=== PATIENT | female | born 1980 | race African-American/Black ===

== ENCOUNTER 2016-09-02 16:14 | Emergency (ER) | payer OTHER ==
[~2016-09-02] VITALS: Ht 167.6 cm; Wt 72.0 kg
[2016-09-02] MEDS ORDERED: BIOT5CAP10 PO (16:27)
[2016-09-02] MEDS ORDERED: PNV11TAB PO (16:27)
[2016-09-02] MEDS ORDERED: SODIUM CHLORIDE 0.9% 1,000 ML IV ONE (17:15)
[2016-09-02] MEDS ORDERED: KETOROLAC TROMETHAMINE 30 MG/ML VIAL IVP ONE (17:15)
[2016-09-02] MEDS ORDERED: ONDANSETRON HCL 4 MG/2 ML VIAL IVP ONE (17:15)
[2016-09-02 17:43] LABS: BASOPHILS % (AUTO) 1.1 % (0.0-2.0); EOSINOPHILS % (AUTO) 6.6 % (1.0-6.0); HEMATOCRIT 33.8 % (36-46); HEMOGLOBIN 10.2 g/dL (12.0-16.0); LYMPHOCYTES # (AUTO) 1.9 K/uL (1.0-4.8); LYMPHOCYTES % (AUTO) 27.7 % (22.0-44.0); MEAN CORPUSCULAR HGB CONC 30.3 G/dL (31.0-37.0); MEAN CORPUSCULAR VOLUME 73 fL (80-100); MONOCYTES # (AUTO) 0.3 K/uL (0.1-1.0); MONOCYTES % (AUTO) 3.9 % (2.0-9.0); NEUTROPHILS # (AUTO) 4.1 K/uL (1.8-7.7); NEUTROPHILS % (AUTO) 60.7 % (40.0-70.0); PLATELET COUNT (AUTO) 371 K/uL (150-450); RED BLOOD CELL COUNT(AUTO) 4.66 MIL/uL (4.00-5.20); RED CELL DISTRIBUTION WIDTH 20.9 % (11.5-14.5); WHITE BLOOD COUNT (AUTO) 6.8 K/uL (4.5-11.0)
[2016-09-02 17:46] LABS: ANION GAP 5 mmol/L (8-16); CALCIUM, TOTAL 8.8 mg/dL (8.8-10.5); CARBON DIOXIDE 29 mmol/L (22-29); CHLORIDE 103 mmol/L (98-107); CREATININE 0.98 mg/dL (0.60-1.30); GLOMERULAR FILTR. RATE CALC > 60 mL/min (>60); POTASSIUM 4.4 mmol/L (3.5-5.1); SODIUM SERUM 137 mmol/L (136-145); UREA NITROGEN, BLOOD 10 mg/dL (7-18)
[2016-09-02 17:54] LABS: RBC MORPHOLOGY COMMENT ABNORMAL RBC MORPH
[2016-09-02 17:55] LABS: ALANINE AMINOTRANSFERASE 22 U/L (12-78); ALBUMIN 3.6 g/dL (3.4-5.0); ASPARTATE AMINOTRANSFERASE 15 U/L (15-37); BILIRUBIN,TOTAL 0.2 mg/dL (0.1-1.0)
[2016-09-02 19:08] VITALS: BP 119/65
== END 2016-09-02 19:14 | disposition home or self-care (01) ==
LOC: EMS 16:15
DX: N83.201 Unspecified ovarian cyst, right side (principal); N83.202 Unspecified ovarian cyst, left side; F17.210 Nicotine dependence, cigarettes, uncomplicated; Z88.5 Allergy status to narcotic agent; Z88.8 Allergy status to other drugs, medicaments and biological substances
CPT/HCPCS: 36415; 76856; 80053; 83690; 84703; 85025; 96361; 96374; 96375; 99285; J1885; J2405; J7030

== ENCOUNTER 2017-03-11 19:52 | Emergency (ER) | payer OTHER ==
[~2017-03-11] VITALS: Ht 165.1 cm; Wt 90.5 kg
[~2017-03-11 19:52] MED LIST: BIOT5CAP9 PO; PNV11TAB PO
[2017-03-11] MEDS ORDERED: KETOROLAC TROMETHAMINE 60 MG/2 ML VIAL IM ONE (21:15)
[2017-03-11 23:06] VITALS: BP 118/70
== END 2017-03-11 23:27 | disposition home or self-care (01) ==
LOC: EMS 19:56
DX: S00.83XA Contusion of other part of head, initial encounter (principal); F17.210 Nicotine dependence, cigarettes, uncomplicated; Z88.6 Allergy status to analgesic agent; Z88.5 Allergy status to narcotic agent; Z88.8 Allergy status to other drugs, medicaments and biological substances; Y04.0XXA Assault by unarmed brawl or fight, initial encounter; Y93.89 Activity, other specified; Y92.89 Other specified places as the place of occurrence of the external cause; Y99.8 Other external cause status
CPT/HCPCS: 70450; 81025; 96372; 99284; J1885

== ENCOUNTER 2017-09-19 16:03 | Emergency (ER) | payer OTHER ==
[~2017-09-19] VITALS: Ht 162.6 cm; Wt 86.8 kg
[2017-09-19] MEDS ORDERED: IBUPROFEN 800 MG TABLET PO ONE (16:30)
[2017-09-19 17:31] VITALS: BP 136/85
== END 2017-09-19 18:48 | disposition home or self-care (01) ==
LOC: EMS 16:08
DX: S46.912A Strain of unspecified muscle, fascia and tendon at shoulder and upper arm level, left arm, initial encounter (principal); F17.210 Nicotine dependence, cigarettes, uncomplicated; Z88.8 Allergy status to other drugs, medicaments and biological substances; X58.XXXA Exposure to other specified factors, initial encounter; Y93.89 Activity, other specified; Y92.89 Other specified places as the place of occurrence of the external cause; Y99.8 Other external cause status
CPT/HCPCS: 99284; 99406

== ENCOUNTER 2017-10-23 23:22 | Emergency (ER) | payer OTHER ==
[~2017-10-23] VITALS: Ht 172.7 cm; Wt 85.0 kg
[2017-10-24 00:27] LABS: BASOPHILS % (AUTO) 1.3 % (0.0-2.0); EOSINOPHILS % (AUTO) 4.4 % (1.0-6.0); HEMATOCRIT 28.9 % (36-46); HEMOGLOBIN 9.5 g/dL (12.0-16.0); LYMPHOCYTES # (AUTO) 2.8 K/uL (1.0-4.8); LYMPHOCYTES % (AUTO) 30.3 % (22.0-44.0); MEAN CORPUSCULAR HEMOGLOBIN 23.4 pg (26.0-34.0); MEAN CORPUSCULAR HGB CONC 32.7 G/dL (31.0-37.0); MEAN CORPUSCULAR VOLUME 72 fL (80-100); MONOCYTES # (AUTO) 0.7 K/uL (0.1-1.0); MONOCYTES % (AUTO) 7.5 % (2.0-9.0); NEUTROPHILS # (AUTO) 5.3 K/uL (1.8-7.7); NEUTROPHILS % (AUTO) 56.5 % (40.0-70.0); PLATELET COUNT (AUTO) 346 K/uL (150-450); RED BLOOD CELL COUNT(AUTO) 4.04 MIL/uL (4.00-5.20); RED CELL DISTRIBUTION WIDTH 18.1 % (11.5-14.5)
[2017-10-24 00:39] LABS: ANION GAP 8 mmol/L (8-16); CALCIUM, TOTAL 9.1 mg/dL (8.8-10.5); CARBON DIOXIDE 25 mmol/L (22-29); CHLORIDE 101 mmol/L (98-107); GLOMERULAR FILTR. RATE CALC > 60 mL/min (>60); GLUCOSE,RANDOM 93 mg/dL (70-110); POTASSIUM 3.6 mmol/L (3.5-5.1); SODIUM SERUM 134 mmol/L (136-145); UREA NITROGEN, BLOOD 10 mg/dL (7-18)
[2017-10-24 00:45] LABS: ALANINE AMINOTRANSFERASE 16 U/L (12-78); ALBUMIN 3.4 g/dL (3.4-5.0); ALKALINE PHOSPHATASE 95 U/L (46-116); ASPARTATE AMINOTRANSFERASE 12 U/L (15-37); BILIRUBIN,TOTAL 0.1 mg/dL (0.1-1.0); LIPASE 122 U/L (73-393); TOTAL PROTEIN, SERUM 7.7 g/dL (6.4-8.2)
[2017-10-24 01:58] LABS: APPEARANCE,URINE CLEAR (CLEAR); BILIRUBIN,URINE NEGATIVE (NEGATIVE); GLUCOSE, URINE (UA) NEGATIVE (NEGATIVE); KETONES,URINE NEGATIVE (NEGATIVE); LEUKOCYTE ESTERASE ,URINE NEGATIVE (NEGATIVE); NITRATE,URINE NEGATIVE (NEGATIVE); OCCULT BLOOD,URINE NEGATIVE (NEGATIVE); PH,URINE 6.5 (5.0-8.0); PROTEIN,URINE NEGATIVE (NEGATIVE); UROBILINOGEN,URINE 0.2 mg/dL (<=1.0)
[2017-10-24 02:24] LABS: HCG,QUANTITATIVE 93670 mIU/mL (0-6)
[2017-10-24 03:12] VITALS: BP 141/79
== END 2017-10-24 03:33 | disposition home or self-care (01) ==
LOC: EMS 23:23
DX: O21.9 Vomiting of pregnancy, unspecified (principal); O99.331 Smoking (tobacco) complicating pregnancy, first trimester; O26.891 Other specified pregnancy related conditions, first trimester; R10.30 Lower abdominal pain, unspecified; R11.0 Nausea; Z3A.08 8 weeks gestation of pregnancy; Z88.6 Allergy status to analgesic agent; Z88.5 Allergy status to narcotic agent; Z88.8 Allergy status to other drugs, medicaments and biological substances
CPT/HCPCS: 76801; 86901; 99285; 99406

== ENCOUNTER 2020-09-16 13:37 | Emergency (ER) | payer OTHER ==
[~2020-09-16] VITALS: Ht 175.3 cm; Wt 95.0 kg
[2020-09-16 14:42] LABS: BASOPHILS % (AUTO) 0.3 % (0.0-2.0); EOSINOPHILS % (AUTO) 0.2 % (1.0-6.0); HEMATOCRIT 31.2 % (36-46); HEMOGLOBIN 9.7 g/dL (12.0-16.0); LYMPHOCYTES # (AUTO) 1.6 K/uL (1.0-4.8); LYMPHOCYTES % (AUTO) 11.1 % (22.0-44.0); MEAN CORPUSCULAR HEMOGLOBIN 21.9 pg (26.0-34.0); MEAN CORPUSCULAR VOLUME 71 fL (80-100); MONOCYTES % (AUTO) 7.2 % (2.0-9.0); NEUTROPHILS # (AUTO) 11.5 K/uL (1.8-7.7); NEUTROPHILS % (AUTO) 81.2 % (40.0-70.0); PLATELET COUNT (AUTO) 301 K/uL (150-450); RED BLOOD CELL COUNT(AUTO) 4.42 MIL/uL (4.00-5.20); RED CELL DISTRIBUTION WIDTH 18.7 % (11.5-14.5)
[2020-09-16 14:51] LABS: ANION GAP 10 mmol/L (8-16); CALCIUM, TOTAL 8.9 mg/dL (8.8-10.5); CARBON DIOXIDE 25 mmol/L (22-29); CHLORIDE 100 mmol/L (98-107); CREATININE 0.72 mg/dL (0.60-1.30); GLOMERULAR FILTR. RATE CALC > 60 mL/min (>60); GLUCOSE,RANDOM 98 mg/dL (70-110); POTASSIUM 3.7 mmol/L (3.5-5.1); SODIUM SERUM 135 mmol/L (136-145); UREA NITROGEN, BLOOD 8 mg/dL (7-18)
[2020-09-16 15:02] LABS: HCG,QUANTITATIVE < 1 mIU/mL (0-6)
[2020-09-16] MEDS ORDERED: KETOROLAC TROMETHAMINE 30 MG/ML VIAL IM ONE (15:30)
[2020-09-16] MEDS ORDERED: DEXAMETHASONE 4 MG TABLET PO ONE (15:30)
[2020-09-16 15:42] LABS: PLATELET MORPHOLOGY COMMENT LARGE PLTS PRESENT
[2020-09-16 16:49] VITALS: BP 115/62
== END 2020-09-16 16:54 | disposition home or self-care (01) ==
LOC: EMS 13:43
DX: J03.90 Acute tonsillitis, unspecified (principal)
CPT/HCPCS: 36415; 80048; 84702; 85025; 87430; 96372; 99283; J1885; J8540

== ENCOUNTER 2021-06-30 12:59 | Emergency (ER) | payer OTHER ==
[~2021-06-30] VITALS: Ht 165.1 cm; Wt 86.4 kg
[2021-06-30 13:42] LABS: COVID AG,FIA SOURCE NASOPHARYNGEAL
[2021-06-30 15:16] VITALS: BP 133/80
[2021-06-30] MEDS ORDERED: FLUT16H NASAL (15:27)
[2021-06-30] MEDS ORDERED: OXYMETAZOLINE HCL 0.05% 15 ML NASAL SPRAY NASAL ONE (15:30)
[2021-06-30] MEDS ORDERED: KETOROLAC TROMETHAMINE 30 MG/ML VIAL IM ONE (15:30)
== END 2021-06-30 15:47 | disposition home or self-care (01) ==
LOC: EMS 12:59
DX: J40 Bronchitis, not specified as acute or chronic (principal); Z20.822 Contact with and (suspected) exposure to COVID-19
CPT/HCPCS: 71045; 87426; 96372; 99284; J1885

== ENCOUNTER 2022-06-27 06:59 | Emergency (ER) | payer OTHER ==
[~2022-06-27] VITALS: Ht 170.2 cm; Wt 72.7 kg
[~2022-06-27 06:59] MED LIST changes: -BIOT5CAP9 PO; +FLUT16SP NASAL; -PNV11TAB PO
[2022-06-27 07:06] VITALS: BP 108/73
[2022-06-27 07:16] LABS: COVID AG,FIA SOURCE NASAL SWAB
[2022-06-27 07:37] LABS: RAPID GROUP A STREP POSITIVE (NEGATIVE)
[2022-06-27 07:43] LABS: INFLUENZA TYPE A NEGATIVE FOR TYPE A (NEGATIVE); INFLUENZA TYPE B NEGATIVE FOR TYPE B (NEGATIVE)
[2022-06-27] MEDS ORDERED: PENI500T2 PO (08:44)
[2022-06-27] MEDS ORDERED: KETOROLAC TROMETHAMINE 60 MG/2 ML VIAL IM ONE (08:45)
[2022-06-27] MEDS ORDERED: LIDOCAINE/PF 1% 2 ML VIAL IM ONE (08:45)
[2022-06-27] MEDS ORDERED: CefTRIAXone SODIUM 1 GM/VIAL IM ONE (08:45)
== END 2022-06-27 09:28 | disposition home or self-care (01) ==
LOC: EMS 07:03
DX: J02.9 Acute pharyngitis, unspecified (principal); R50.9 Fever, unspecified; Z87.891 Personal history of nicotine dependence; Z98.890 Other specified postprocedural states; Z88.6 Allergy status to analgesic agent; Z88.8 Allergy status to other drugs, medicaments and biological substances; Z20.822 Contact with and (suspected) exposure to COVID-19
CPT/HCPCS: 99284; 87426; 87430; 87804; 96372; J0696; J3490

== ENCOUNTER 2022-08-07 23:23 | Emergency (ER) | payer OTHER ==
[~2022-08-07] VITALS: Ht 170.2 cm; Wt 95.5 kg
[~2022-08-07 23:23] MED LIST changes: +PENI500T2 PO
[2022-08-07 23:25] VITALS: BP 170/94
[2022-08-08 00:21] LABS: BASOPHILS % (AUTO) 1.2 % (0.0-2.0); EOSINOPHILS % (AUTO) 2.3 % (1.0-6.0); HEMATOCRIT 26.5 % (36-46); HEMOGLOBIN 8.3 g/dL (12.0-16.0); LYMPHOCYTES # (AUTO) 3.3 K/uL (1.0-4.8); LYMPHOCYTES % (AUTO) 39.8 % (22.0-44.0); MEAN CORPUSCULAR HEMOGLOBIN 20.8 pg (26.0-34.0); MEAN CORPUSCULAR HGB CONC 31.4 G/dL (31.0-37.0); MEAN CORPUSCULAR VOLUME 66 fL (80-100); MONOCYTES # (AUTO) 0.6 K/uL (0.1-1.0); MONOCYTES % (AUTO) 7.3 % (2.0-9.0); NEUTROPHILS % (AUTO) 49.4 % (40.0-70.0); PLATELET COUNT (AUTO) 425 K/uL (150-450); RED BLOOD CELL COUNT(AUTO) 4.01 MIL/uL (4.00-5.20); RED CELL DISTRIBUTION WIDTH 20.2 % (11.5-14.5)
[2022-08-08 00:28] LABS: ANION GAP 11 mmol/L (8-16); CALCIUM, TOTAL 8.3 mg/dL (8.8-10.5); CARBON DIOXIDE 24 mmol/L (22-29); CHLORIDE 102 mmol/L (98-107); CREATININE 1.01 mg/dL (0.60-1.30); GLOMERULAR FILTR. RATE CALC > 60 mL/min (>60); GLUCOSE,RANDOM 101 mg/dL (70-110); POTASSIUM 3.5 mmol/L (3.5-5.1); SODIUM SERUM 137 mmol/L (136-145); UREA NITROGEN, BLOOD 21 mg/dL (7-18)
[2022-08-08 00:35] LABS: ALANINE AMINOTRANSFERASE 16 U/L (12-78); ALBUMIN 3.4 g/dL (3.4-5.0); ALKALINE PHOSPHATASE 74 U/L (46-116); ASPARTATE AMINOTRANSFERASE 15 U/L (15-37); BILIRUBIN,TOTAL 0.3 mg/dL (0.1-1.0); TOTAL PROTEIN, SERUM 7.6 g/dL (6.4-8.2)
[2022-08-08] MEDS ORDERED: BACITRACIN 0.9 GM PACKET OINTMENT TP ONE (01:45)
[2022-08-08] MEDS ORDERED: IBUPROFEN 600 MG TABLET PO ONE (02:00)
== END 2022-08-08 01:58 | disposition home or self-care (01) ==
LOC: EMS 23:23
DX: S00.83XA Contusion of other part of head, initial encounter (principal); S19.9XXA Unspecified injury of neck, initial encounter; S00.81XA Abrasion of other part of head, initial encounter; Z98.890 Other specified postprocedural states; Z87.891 Personal history of nicotine dependence; Z88.5 Allergy status to narcotic agent; Z88.8 Allergy status to other drugs, medicaments and biological substances; X58.XXXA Exposure to other specified factors, initial encounter; Y93.89 Activity, other specified; Y92.89 Other specified places as the place of occurrence of the external cause; Y99.8 Other external cause status
CPT/HCPCS: 70450; 70486; 72125; 80053; 84703; 85025; 99284

== ENCOUNTER 2022-11-19 10:40 | Emergency (ER) | payer OTHER ==
[~2022-11-19] VITALS: Ht 170.2 cm; Wt 77.3 kg
[2022-11-19 10:59] VITALS: BP 128/74; PULSE 78; RESP 16; TEMP 98.3
[2022-11-19 13:35] LABS: COVID AG,FIA SOURCE NASOPHARYNGEAL
[2022-11-19] MEDS ORDERED: IBUP-1492 PO (13:54)
[2022-11-19] MEDS ORDERED: PERCT PO (13:55)
[2022-11-19] MEDS ORDERED: PENI500T2 PO (13:55)
[2022-11-19] MEDS ORDERED: AMOX500C2 PO (15:17)
== END 2022-11-19 15:40 | disposition home or self-care (01) ==
LOC: EMS 10:40
DX: J32.9 Chronic sinusitis, unspecified (principal); Z85.9 Personal history of malignant neoplasm, unspecified; Z87.891 Personal history of nicotine dependence; Z88.5 Allergy status to narcotic agent; Z88.6 Allergy status to analgesic agent; Z88.8 Allergy status to other drugs, medicaments and biological substances; Z20.822 Contact with and (suspected) exposure to COVID-19; Z98.890 Other specified postprocedural states
CPT/HCPCS: 87430; 99283

== ENCOUNTER 2023-03-19 09:42 | Emergency (ER) | payer OTHER ==
[~2023-03-19] VITALS: Ht 162.6 cm; Wt 88.2 kg
[~2023-03-19 09:42] MED LIST changes: +AMOX500C2 PO; -FLUT16SP NASAL; +IBUP-1492 PO; -PENI500T2 PO
[2023-03-19 09:44] VITALS: TEMP 98
[2023-03-19 10:02] LABS: COVID AG,FIA SOURCE NASAL SWAB
[2023-03-19 10:25] LABS: SARS-COV2 (COVID) ANTIGEN,FIA Negative (Negative)
[2023-03-19 10:26] LABS: INFLUENZA TYPE A NEGATIVE FOR TYPE A (NEGATIVE); INFLUENZA TYPE B NEGATIVE FOR TYPE B (NEGATIVE)
[2023-03-19 12:03] LABS: BASOPHILS % (AUTO) 1.7 % (0.0-2.0); HEMATOCRIT 26.3 % (36-46); HEMOGLOBIN 8.4 g/dL (12.0-16.0); LYMPHOCYTES # (AUTO) 1.6 K/uL (1.0-4.8); LYMPHOCYTES % (AUTO) 27.3 % (22.0-44.0); MEAN CORPUSCULAR HEMOGLOBIN 21.3 pg (26.0-34.0); MEAN CORPUSCULAR HGB CONC 31.8 G/dL (31.0-37.0); MEAN CORPUSCULAR VOLUME 67 fL (80-100); MONOCYTES # (AUTO) 0.3 K/uL (0.1-1.0); MONOCYTES % (AUTO) 4.5 % (2.0-9.0); NEUTROPHILS # (AUTO) 3.7 K/uL (1.8-7.7); NEUTROPHILS % (AUTO) 62.5 % (40.0-70.0); PLATELET COUNT (AUTO) 576 K/uL (150-450); RED BLOOD CELL COUNT(AUTO) 3.93 MIL/uL (4.00-5.20); WHITE BLOOD COUNT (AUTO) 5.9 K/uL (4.5-11.0)
[2023-03-19 12:13] LABS: ANION GAP 9 mmol/L (8-16); CALCIUM, TOTAL 8.8 mg/dL (8.8-10.5); CARBON DIOXIDE 26 mmol/L (22-29); CHLORIDE 102 mmol/L (98-107); GLOMERULAR FILTR. RATE CALC > 60 mL/min (>60); GLUCOSE,RANDOM 91 mg/dL (70-110); POTASSIUM 3.6 mmol/L (3.5-5.1); SODIUM SERUM 137 mmol/L (136-145); UREA NITROGEN, BLOOD 12 mg/dL (7-18)
[2023-03-19 12:19] LABS: ALANINE AMINOTRANSFERASE 9 U/L (12-78); ALBUMIN 3.1 g/dL (3.4-5.0); ALKALINE PHOSPHATASE 96 U/L (46-116); ASPARTATE AMINOTRANSFERASE 15 U/L (15-37); BILIRUBIN,TOTAL 0.2 mg/dL (0.1-1.0); TOTAL PROTEIN, SERUM 8.1 g/dL (6.4-8.2)
[2023-03-19 12:32] LABS: RBC MORPHOLOGY COMMENT ABNORMAL RBC MORPH
[2023-03-19] MEDS ORDERED: ALBU18HF12 IH (14:32)
[2023-03-19] MEDS ORDERED: AZIT250T9 PO (14:32)
[2023-03-19 14:45] VITALS: BP 140/78; PULSE 70; RESP 16
== END 2023-03-19 14:59 | disposition home or self-care (01) ==
LOC: EMS 09:49
DX: J40 Bronchitis, not specified as acute or chronic (principal); D64.9 Anemia, unspecified; Z87.891 Personal history of nicotine dependence; Z98.890 Other specified postprocedural states; Z88.6 Allergy status to analgesic agent; Z88.8 Allergy status to other drugs, medicaments and biological substances; Z20.822 Contact with and (suspected) exposure to COVID-19
CPT/HCPCS: 71045; 80053; 84703; 85025; 87804; 93005; 99285; 36415-L1; 36415-TC

== ENCOUNTER 2023-06-30 22:22 | Emergency (ER) | payer OTHER ==
[~2023-06-30] VITALS: Ht 165.1 cm; Wt 90.9 kg
[~2023-06-30 22:22] MED LIST changes: +ALBU18HF12 IH
[2023-06-30 22:44] VITALS: TEMP 98.9
[2023-06-30 23:13] LABS: BASOPHILS % (AUTO) 0.7 % (0.0-2.0); HEMATOCRIT 25.6 % (36-46); LYMPHOCYTES # (AUTO) 2.6 K/uL (1.0-4.8); LYMPHOCYTES % (AUTO) 31.1 % (22.0-44.0); MEAN CORPUSCULAR HEMOGLOBIN 20.9 pg (26.0-34.0); MEAN CORPUSCULAR HGB CONC 31.5 G/dL (31.0-37.0); MEAN CORPUSCULAR VOLUME 67 fL (80-100); MONOCYTES # (AUTO) 0.6 K/uL (0.1-1.0); MONOCYTES % (AUTO) 6.7 % (2.0-9.0); NEUTROPHILS # (AUTO) 4.8 K/uL (1.8-7.7); NEUTROPHILS % (AUTO) 57.5 % (40.0-70.0); PLATELET COUNT (AUTO) 407 K/uL (150-450); RED BLOOD CELL COUNT(AUTO) 3.84 MIL/uL (4.00-5.20); WHITE BLOOD COUNT (AUTO) 8.3 K/uL (4.5-11.0)
[2023-06-30 23:24] LABS: ANION GAP 10 mmol/L (8-16); CALCIUM, TOTAL 9.1 mg/dL (8.8-10.5); CARBON DIOXIDE 23 mmol/L (22-29); CHLORIDE 102 mmol/L (98-107); CREATININE 0.67 mg/dL (0.60-1.30); GLOMERULAR FILTR. RATE CALC > 60 mL/min (>60); GLUCOSE,RANDOM 97 mg/dL (70-110); POTASSIUM 3.8 mmol/L (3.5-5.1); SODIUM SERUM 135 mmol/L (136-145); UREA NITROGEN, BLOOD 11 mg/dL (7-18)
[2023-06-30 23:41] LABS: RBC MORPHOLOGY COMMENT ABNORMAL RBC MORPH
[2023-06-30 23:55] LABS: ALANINE AMINOTRANSFERASE 12 U/L (12-78); ALKALINE PHOSPHATASE 68 U/L (46-116); ASPARTATE AMINOTRANSFERASE 12 U/L (15-37); BILIRUBIN,TOTAL 0.1 mg/dL (0.1-1.0); HCG,QUANTITATIVE 88071 mIU/mL (0-6); LIPASE 33 U/L (16-77); TOTAL PROTEIN, SERUM 7.7 g/dL (6.4-8.2)
[2023-07-01 00:11] VITALS: BP 134/83; PULSE 65; RESP 16
[2023-07-01 02:11] LABS: APPEARANCE,URINE CLEAR (CLEAR); BILIRUBIN,URINE NEGATIVE (NEGATIVE); COLOR,URINE LIGHT YELLOW (YELLOW); GLUCOSE, URINE (UA) NEGATIVE (NEGATIVE); KETONES,URINE NEGATIVE (NEGATIVE); LEUKOCYTE ESTERASE ,URINE NEGATIVE (NEGATIVE); NITRATE,URINE NEGATIVE (NEGATIVE); OCCULT BLOOD,URINE NEGATIVE (NEGATIVE); PH,URINE 6.5 (5.0-8.0); PROTEIN,URINE NEGATIVE (NEGATIVE); SPECIFIC GRAVITIY, URINE 1.023 (1.003-1.030); UROBILINOGEN,URINE <=1.0 mg/dL (<=1.0)
== END 2023-07-01 03:33 | disposition home or self-care (01) ==
LOC: EMS 22:24
DX: O26.891 Other specified pregnancy related conditions, first trimester (principal); R10.32 Left lower quadrant pain; Z87.891 Personal history of nicotine dependence; Z98.890 Other specified postprocedural states; Z88.6 Allergy status to analgesic agent; Z88.5 Allergy status to narcotic agent; Z88.8 Allergy status to other drugs, medicaments and biological substances; Z3A.11 11 weeks gestation of pregnancy
CPT/HCPCS: 76801; 80053; 81003; 83690; 84702; 85025; 99284